=== PATIENT | male | born 1995 | race African-American/Black ===

== ENCOUNTER 2023-09-20 22:25 | Emergency (ER) | payer OTHER ==
[~2023-09-20] VITALS: Ht 185.4 cm; Wt 81.8 kg
[2023-09-20] MEDS ORDERED: ISOVUE-370 76% 100ML VIAL As Ordered ONE (22:32)
[2023-09-20 22:50] LABS: VENOUS BASE EXCESS 0.4 (-2.0-2.0); VENOUS HCO3 23.2 MMOL/L (23.0-27.0); VENOUS O2 SATURATION 60.9 % (60.0-80.0); VENOUS PARTIAL PRESSURE CO2 32.2 mmHg (38.0-50.0); VENOUS PARTIAL PRESSURE O2 28.2 mmHg (30.0-50.0); VENOUS PH 7.475 UNITS (7.330-7.430); VENOUS STANDARD HCO3 23.9 MMOL/L; VENOUS TOTAL CO2 24.2 MMOL/L (24.0-28.0)
[2023-09-20 22:54] LABS: BASO % 0.1 % (0.0-1.0); HEMATOCRIT 39.4 % (42.0-52.0); HEMOGLOBIN 12.9 g/dl (13.5-17.5); LYMPH # 1.3 10^3/uL (1.5-5.0); LYMPH % 6.6 % (24.0-44.0); MEAN CORPUSCULAR HEMOGLOBIN 23.7 pg (27.0-33.0); MEAN CORPUSCULAR HGB CONC 32.7 g/dl (32.0-36.5); MEAN CORPUSCULAR VOLUME 72.4 fl (80.0-96.0); MONO # 1.4 10^3/uL (0.0-0.8); MONO % 7.1 % (2.0-8.0); NEUTROPHILS # 17.3 10^3/uL (1.5-8.5); NEUTROPHILS % 85.8 % (36.0-66.0); PLATELET COUNT, AUTOMATED 318 10^3/uL (150-450); RED BLOOD COUNT 5.44 10^6/uL (4.30-6.10); WHITE BLOOD COUNT 20.1 10^3/uL (4.0-10.0)
[2023-09-20 22:55] VITALS: TEMP 98.2
[2023-09-20 23:14] LABS: INR 1.15; PARTIAL THROMBOPLASTIN TIME 22.8 SECONDS (24.8-34.2); PROTHROMBIN TIME 14.4 SECONDS (12.5-14.5)
[2023-09-20 23:24] LABS: ETHYL ALCOHOL (ETHANOL) < 0.003 % (0.000-0.010); LIPASE 161 U/L (12-53)
[2023-09-20 23:26] LABS: ALBUMIN 4.4 G/DL (3.2-5.2); ALKALINE PHOSPHATASE 75 U/L (46-116); ALT/SGPT 89 U/L (7.0-40); AMYLASE 599 U/L (30-118); AST/SGOT 155 U/L (<34); BILIRUBIN,DIRECT 0.4 MG/DL (<0.4); BILIRUBIN,TOTAL 1.1 MG/DL (0.3-1.2); BLOOD UREA NITROGEN 20 MG/DL (9-23); CALCIUM LEVEL 10.1 MG/DL (8.5-10.1); CARBON DIOXIDE LEVEL 23 MMOL/L (20-31); CHLORIDE LEVEL 106 MMOL/L (98-107); CK-MB VALUE MASS 21.6 NG/ML (<3.6); CREATININE FOR GFR 1.01 MG/DL (0.70-1.30); GLOMERULAR FILTRATION RATE > 60.0 (>60); GLUCOSE, FASTING 110 MG/DL (60-100); POTASSIUM SERUM 3.7 MMOL/L (3.5-5.1); SODIUM LEVEL 138 MMOL/L (136-145); TOTAL PROTEIN 7.7 G/DL (5.7-8.2)
[2023-09-20 23:39] LABS: CPK CREATINE PHOSPHOKINASE 2424 U/L (46-171); MB/CK RELATIVE INDEX 0.89 (< OR =4)
[2023-09-20] MEDS: ACETAMINOPHEN *IV* 1,000 MG in IV 1 EA IV ONE (23:49)
[2023-09-21] MEDS: NS 1,000 ML IV ONE (01:17)
[2023-09-21 02:45] VITALS: BP 142/88
[2023-09-21 04:25] VITALS: O2SAT 100
== END 2023-09-21 04:43 | disposition home or self-care (01) ==
LOC: EDBD 22:25 → M ED 22:25
DX: S02.2XXA Fracture of nasal bones, initial encounter for closed fracture (principal); S00.11XA Contusion of right eyelid and periocular area, initial encounter; Y92.410 Unspecified street and highway as the place of occurrence of the external cause; Y93.9 Activity, unspecified; Y99.9 Unspecified external cause status
CPT/HCPCS: 70450; 70486; 71260; 72125; 73090; 74177; 80047; 80048; 80076; 82077; 82150; 82550; 82553; 82803; 83605; 83690; 84484; 85025; 85610; 85730; 86850; 86900; 86901; 93005; 94760; 96365; 96366; 99285; J0131; Q9967

== ENCOUNTER 2025-01-28 23:07 | Emergency (ER) | payer OTHER ==
[~2025-01-28] VITALS: Ht 185.4 cm; Wt 77.2 kg
[2025-01-28 23:10] VITALS: TEMP 97.9
[2025-01-29 01:39] VITALS: BP 136/66; O2SAT 99
== END 2025-01-29 01:40 | disposition home or self-care (01) ==
LOC: M ED 23:07
DX: R68.2 Dry mouth, unspecified (principal); Z59.02 Unsheltered homelessness